=== PATIENT | female | born 1960 | race African-American/Black ===

== ENCOUNTER 2017-05-20 13:35 | Emergency (ER) | payer OTHER ==
[2017-05-20 13:47] VITALS: BP 156/80; PULSE 69; TEMP 98.2; BMI 48.4
--- NOTE | 2017-05-20 15:26 | PDOC ---
History of Present Illness - General Chief Complaint: Rash Stated Complaint: RASH Time Seen by Provider: 05/20/17 14:58 Past History - Past Medical History Allergies/Adverse Reactions: Allergies Allergy/AdvReac Type Severity Reaction Status Date / Time No Known Drug Allergies Allergy Verified 05/20/17 13:44 Home Medications: Ambulatory Orders Multivitamin [Multivitamins] 1 each PO HS 01/25/14 Stribild 1 tab PO HS 01/25/14 Metformin HCl [Glucophage -] 500 mg PO HS 02/01/14 Olmesartan/Amlodipin/Hcthiazid [Tribenzor 40-5-12.5 mg Tablet] 1 each PO HS Ascorbic Acid [Vitamin C] 100 mg PO DAILY 04/25/14 Cephalexin [Keflex] 500 mg PO DAILY 04/25/14 Diclofenac Sodium 75 mg PO BID 04/25/14 Gabapentin 300 mg PO DAILY 04/25/14 Iron,Carbonyl/Vit C/Vit B12/FA [Iron 100 Plus Tablet] 1 each PO DAILY 04/25/14 Magnesium Oxide/Magnesium [Magnesium 300 mg Capsule] 1 mg PO DAILY 04/25/14 Mv-Mn/Iron/FA/Herbal Cmplx#190 [Vitamin D3 Complete Caplet] 1 each PO DAILY Anemia: No Asthma: No Cancer: No Cardiac Disorders: No CVA: No COPD: No CHF: No Dementia: No Diabetes: Yes GI Disorders: No Disorders: No HTN: Yes Hypercholesterolemia: Yes Liver Disease: No Seizures: No Thyroid Disease: No - Surgical History Abdominal Surgery: Yes (GASTRIC BYPASS) Appendectomy: No Cardiac Surgery: No Cholecystectomy: Yes Lung Surgery: No Neurologic Surgery: No Orthopedic Surgery: Yes (L BUNIONECTOMY) - Psycho/Social/Smoking Cessation Hx Anxiety: No Suicidal Ideation: No Smoking History: Former smoker Have you smoked in the past 12 months: No If you are a former smoker, when did you quit?: 2003 Information on smoking cessation initiated: No Hx Alcohol Use: No Drug/Substance Use Hx: No Substance Use Type: None Hx Substance Use Treatment: No *Physical Exam - Vital Signs Last Vital Signs Temp Pulse Resp BP Pulse Ox 98.2 F 69 18 156/80 100 05/20/17 13:44 05/20/17 13:44 05/20/17 13:44 05/20/17 13:44 05/20/17 13:44 *DC/Admit/Observation/Transfer Diagnosis at time of Disposition: Cellulitis of left upper extremity Type 2 diabetes mellitus with hyperglycemia Qualifiers: Diabetes mellitus emt intermediate insulin use: without emt intermediate use Qualified Code(s ): E11.65 - Type 2 diabetes mellitus with hyperglycemia - Discharge Dispostion Disposition: HOME Condition at time of disposition: Stable Admit: No - Patient Instructions Additional Instructions: return in 3 days for wound check; apply cortisone cream to right arm
== END 2017-05-20 15:49 | disposition home or self-care (01) ==
LOC: JERFT 13:35
DX: L03.114 Cellulitis of left upper limb (principal); Z87.891 Personal history of nicotine dependence; Z98.84 Bariatric surgery status; I10 Essential (primary) hypertension; E78.00 Pure hypercholesterolemia, unspecified
CPT/HCPCS: 99281-25